=== PATIENT | female | born 1995 | race African-American/Black ===

== ENCOUNTER 2024-01-02 23:27 | Emergency (ER) | payer BC ==
[2024-01-02 23:36] VITALS: BP 121/78; PULSE 85; RESP 18; TEMP 98.2; BMI 38.2
[2024-01-03 00:27] LABS: EPI CELLS 11 /uL (0-25.1); HYALINE CASTS 8 /uL (0-3.1); URINE APPEARANCE CLEAR; URINE BACTERIA 106 /uL (0-1359); URINE BILIRUBIN NEGATIVE (NEGATIVE); URINE COLOR YELLOW; URINE GLUCOSE (UA) NEGATIVE (NEGATIVE); URINE KETONE TRACE (NEGATIVE); URINE LEUK ESTERASE 1+ (NEGATIVE); URINE NITRITE NEGATIVE (NEGATIVE); URINE PROTEIN NEGATIVE (NEGATIVE); URINE RBC 16 /uL (0-23.9); URINE UROBILINOGEN 0.2 mg/dL (0.2-1.0); URINE WBC 263 /uL (0-25.8)
[2024-01-03] MEDS ORDERED: NITROFURANTOIN MACROCRYSTAL 50 MG CAPSULE (FP) ONE (00:30)
[2024-01-03] MEDS: NITROFURANTOIN MONOHYD/M-CRYST 100 MG CAPSULE PO ONE (00:32)
== END 2024-01-03 01:00 | disposition home or self-care (01) ==
LOC: JER 23:27
DX: R60.0 Localized edema (principal); M79.604 Pain in right leg; M79.605 Pain in left leg
CPT/HCPCS: 81003; 84703; 93970-TC; 99284-25